=== PATIENT | male | born 1965 ===

== ENCOUNTER → 2020-09-27 09:44 | Outpatient (CLI) | payer OTHER ==
[~2020-09-27 09:44] MED LIST: ATACAND16 MG PO; ATACAND32 MG PO; RELAFEN PO
== END | disposition home or self-care (01) ==
LOC: LAB 09:44
PROVIDERS: ATTEND Internal Medicine
DX: E03.8 Other specified hypothyroidism (principal); E11.9 Type 2 diabetes mellitus without complications; R31.29 Other microscopic hematuria; E78.00 Pure hypercholesterolemia, unspecified; I11.9 Hypertensive heart disease without heart failure; R68.89 Other general symptoms and signs

== ENCOUNTER 2020-10-04 10:43 | Day surgery (SDC) | payer OTHER | END 2020-10-04 19:00 | disposition home or self-care (01) | LOC: CIR.AMB 10:43 | PROVIDERS: ATTEND Orthopaedic Surgery Hand Surgery | DX: M66.341 Spontaneous rupture of flexor tendons, right hand (principal); D36.12 Benign neoplasm of peripheral nerves and autonomic nervous system, upper limb, including shoulder; Z20.822 Contact with and (suspected) exposure to COVID-19 ==

== ENCOUNTER 2020-12-20 15:05 | Outpatient (CLI) | payer OTHER | END 2020-12-20 15:20 | disposition home or self-care (01) | LOC: PPH VACUNA 15:05 | PROVIDERS: ATTEND Emergency Medicine Pediatric Emergency Medicine | DX: Z23 Encounter for immunization (principal) ==